=== PATIENT | female | born 1980 | race Caucasian/White ===

== ENCOUNTER → 2017-05-11 | Outpatient (CLI) | payer OTHER ==
--- NOTE | 2017-05-11 16:37 | RAD ---
EXAM: Pelvic ultrasound HISTORY: Pelvic pain. Menometrorrhagia. COMPARISON: None. FINDINGS: Sonographic evaluation of the pelvis was performed transabdominally and transvaginally. The uterus is anteverted and measures 9.7 x 6.0 x 3.9 cm. The endometrial stripe measures 13 mm. There is vascularity along the endometrial stripe without a focal mass. No masses are identified. There is no significant free fluid. A prominent cyst along the endocervix measures 1.4 cm. The right ovary measures 2.6 x 2.5 x 1.6 cm. The left ovary measures 2.7 x 2.9 x 1.9 cm. There is normal Doppler flow bilaterally. There are no suspicious lesions. IMPRESSION: 1. Vascularity along the endometrial stripe without a focal mass. This could be followed to assess resolution after this cycle. Alternatively, endometrial tissue sampling could be performed in the appropriate clinical setting. 2. Prominent 1.4 cm cyst along the endocervix.
== END | disposition home or self-care (01) ==
LOC: US 14:09
PROVIDERS: ATTEND Obstetrics & Gynecology
DX: N88.8 Other specified noninflammatory disorders of cervix uteri (principal); N92.1 Excessive and frequent menstruation with irregular cycle
CPT/HCPCS: 76830; 76856

== ENCOUNTER → 2019-05-09 | Outpatient (CLI) | payer OTHER ==
--- NOTE | 2019-05-09 16:55 | RAD ---
Examination: CALCANEUS RIGHT History: Heel pain for the past 5-6 months Comparison/Correlation: None Findings: 2 view right calcaneal fracture exam was performed. Small calcaneal spur is present. No acute fracture or bony destruction. Minimal spurring by the tibiotalar joint noted. Soft tissues are unremarkable. Impression: Small calcaneal spur. Electronically signed by: Floyd Childs MD (05/09/2019 4:52 PM) [facility]
== END | disposition home or self-care (01) ==
LOC: PMG 15:30
PROVIDERS: ATTEND Registered Nurse
DX: M77.31 Calcaneal spur, right foot (principal)
CPT/HCPCS: 73650

== ENCOUNTER → 2020-05-05 | Outpatient (CLI) | payer BC ==
[~2020-05-05] MED LIST: LISI10TA2 PO
== END ==
LOC: LAB 13:00
PROVIDERS: ATTEND Nurse Anesthetist, Certified Registered
DX: Z01.812 Encounter for preprocedural laboratory examination (principal); Z20.828 Contact with and (suspected) exposure to other viral communicable diseases
CPT/HCPCS: U0003-CS

== ENCOUNTER → 2020-05-08 | Day surgery (SDC) | payer BC ==
[~2020-05-08] MED LIST changes: +IPRATRPIUM/ALBUTEROL 0.5/2.5MG 3 ML NEBU. NEB PRN; +IV RINGERS SOLUTION,LACTATED 1,000 ML IV SCH; +LIDOCAINE 2% PF 5 ML VIAL. ONE; +MIDAZOLAM HCL PF 2 MG/2 ML VIAL. IV ONE; +ONDANSETRON PF 4 MG/2 ML VIAL. IV PRN; +PROPOFOL 10,000 MCG/ML (20ML) VIAL IV ONE
[2020-05-08 12:50] VITALS: BP 144/77
--- NOTE | 2020-05-12 16:08 | PATHOLOGY ---
[facility] Accession Number: [id number] . 01 Material submitted: . PART A: stomach - BIOPSY ANTRUM-GASTRITIS PART B: colon - BIOPSY SIGMOID COLON POLYP X2. Modifiers: sigmoid PART C: rectum - BIOPSY RECTAL POLYP . 02 Diagnosis: A. Gastric biopsies, antrum: - Chronic gastritis, mild. . B. Colon biopsies, sigmoid colon polyps x 2: - Hyperplastic polyps. . C. Colorectal biopsies, rectal polyp: - Hyperplastic polyp. (JPM:[facility] 05/12/2020) [facility] 05/12/2020 1404 Local . 02 Comment: There are no adenomatous changes or evidence of malignancy. (JPM:[facility] 05/12/2020) . Special stain performed: Immunoperoxidase for Helicobacter on A1 . 02 Electronically signed: . Aidan Crabtree MD, Pathologist NPI- [id number] . 01 Gross description: . A. The specimen is received in formalin, labeled "Susanna Luis Daniel, biopsy antrum gastritis". Received is a segment of pale stringer soft tissue measuring 0.5 cm in maximum dimensions. The specimen is submitted entirely in cassette A1. . B. The specimen is received in formalin, labeled "Susanna Luis Daniel, biopsy sigmoid polyp x2". Received are three segments of pale stringer soft tissue ranging in size from 0.3 to 0.6 cm in maximum dimensions. The specimen is submitted entirely in cassette B1. . C. The specimen is received in formalin, labeled "Susanna Orient, biopsy rectal polyp". Received are two segments of pale stringer soft tissue ranging in size from 0.3 to 0.4 cm in maximum dimensions. The specimen is submitted entirely in cassette C1. ([facility]AA; 05/11/2020) QAC/QAC 05/11/2020 1553 Local . 02 Pathologist provided ICD-10: K29.50, K63.5, K62.1 . 02 CPT . 226086, 595270, [id number], [id number] Specimen Comment: A courtesy copy of this report has been sent to [phone], [phone] Specimen Comment: [id number] Specimen Comment: Report sent to / DR MANSFIELD Performed at: 01 [facility] [address] [facility] [address], [place] [id number] MD Idris Feldman MD Phone: [phone] Performed at: 02 [facility] [address], [place] [id number] MD Aidan Crabtree MD Phone: [phone]
== END | disposition home or self-care (01) ==
LOC: SURG 10:31
PROVIDERS: ATTEND Internal Medicine Gastroenterology
DX: K62.5 Hemorrhage of anus and rectum (principal); K63.5 Polyp of colon; K62.1 Rectal polyp; K64.1 Second degree hemorrhoids; K21.9 Gastro-esophageal reflux disease without esophagitis; R13.10 Dysphagia, unspecified; K44.9 Diaphragmatic hernia without obstruction or gangrene; K29.50 Unspecified chronic gastritis without bleeding; K22.2 Esophageal obstruction; I10 Essential (primary) hypertension; E66.01 Morbid (severe) obesity due to excess calories; Z87.891 Personal history of nicotine dependence; Z90.710 Acquired absence of both cervix and uterus; Z88.1 Allergy status to other antibiotic agents; Z68.36 Body mass index [BMI] 36.0-36.9, adult; Z79.899 Other long term (current) drug therapy; Z98.890 Other specified postprocedural states
CPT/HCPCS: 43239; 43450; 45380; J2001; J2704; J7120